=== PATIENT | female | born 2000 | race Caucasian/White ===

== ENCOUNTER 2024-06-10 21:20 | Inpatient (IN) | payer OTHER ==
[~2024-06-10] VITALS: Ht 154.9 cm; Wt 66.8 kg
[2024-06-10] MEDS ORDERED: HYDROmorphone 0.5 MG/0.5 ML SYRINGE IV PRN (22:45)
[2024-06-10] MEDS ORDERED: NS 1,000 ML IV SCH (22:45)
[2024-06-10] MEDS ORDERED: Naloxone 0.4 MG/ML VIAL IV PRN (22:45)
[2024-06-10] MEDS ORDERED: Ondansetron 4 MG/2 ML VIAL IV PRN (22:45)
[2024-06-10] MEDS ORDERED: Ketorolac 15 MG/ML VIAL IV SCH (22:45)
[2024-06-10 23:37] VITALS: BP 120/67; PULSE 104; TEMP 98.3
--- NOTE | 2024-06-10 23:39 | NUR ---
PATIENT ADMITTED TO ROOM 342 BROUGHT BY [facility]. DURING TRANSPORT PATIENT RECIEVED TOTAL 100 MG FENTANYL TO ADDRESS 10/10 ABDOMINAL PAIN. VS ARE: 120/67BP, PUSE 104, TEMP 98.3 AND 02 SAT 98 ON RA, RR 16. PATINET IS AXO X4 WITH RT AC IV . KIDNEY ORDER SET INITIATED PATIENT ORIENTED TO ROOM. MED REC IN PROGRESS.
[2024-06-11] VITALS (20 sets, daily range): BP systolic 103–127; BP diastolic 59–79; PULSE 61–135; TEMP 97.8–102.1
[2024-06-11] MEDS ORDERED: ZOFRAN8 MG PO (00:10)
[2024-06-11] MEDS ORDERED: PERCOCET 325 MG1 TA2 PO (00:11)
[2024-06-11] MEDS ORDERED: MOTRIN 800800 MG/TAB PO (00:12)
[2024-06-11] MEDS ORDERED: TYLENOL 325MG325 MG PO (00:13)
[2024-06-11] MEDS ORDERED: COLACE 100100 MG/CAP PO (00:15)
[2024-06-11] MEDS ORDERED: ZYRTEC 10MG10 MG PO (00:15)
--- NOTE | 2024-06-11 01:43 | NUR ---
PATIENT C/O 8/10 ABDOMINAL PAIN. 0.5MG IV DILAUDID ADMINISTERED. THIS NURSE STAYED WITH PATIENT FOR 10 MINUTES FOLLOWING PATIENT HAS NEVER HAD IV DILAUDID. VITAL SIGNS RECHECKED-110/70 BP, 109 PULSE, 16RR AND 97% ON RA. PATIENT RESTING AND AWAKENS EASILY TO ANSWER ADMISSION QUESTIONS FROM CREATIVE SERVICES DIRECTOR.
--- NOTE | 2024-06-11 03:45 | NUR ---
PATIENT SHIVERING AND C/O 8/10 ABDOMINAL PAIN. TORADOL ADMINISTERED AND WARM BLANKET APPLIED. PATIENT NOW RESTING WITH EYES CLOSED AND SHIVERING HAS CEASED.
--- NOTE | 2024-06-11 06:17 | NUR ---
PATIENT UP TO BATHROOM. URINATED 300MLS VIANCA CLOUDY URINE. RATES RT FLANK PAIN 05/13. IV DILAUDID 05MG GIVEN.
--- NOTE | 2024-06-11 07:47 | NUR ---
LEFT MESSAGE WITH DR. HARDEN UPDATING ON PT CONDITION AND ASKING FOR TYLENOL ORDER.
[2024-06-11] MEDS ORDERED: Ondansetron 4 MG/2 ML VIAL ONE (08:34)
[2024-06-11] MEDS ORDERED: dexAMETHasone 10 MG/ML VIAL ONE (08:34)
[2024-06-11] MEDS ORDERED: Lidocaine PF 2% (20 MG/ML) 5 ML VIAL ONE (08:34)
[2024-06-11] MEDS ORDERED: Ketorolac 30 MG/ML VIAL ONE (08:34)
[2024-06-11] MEDS ORDERED: NS 10 ML IV ONE (08:34)
[2024-06-11] MEDS ORDERED: fentaNYL 50 MCG/ML 2 ML VIAL ONE (08:35)
[2024-06-11] MEDS ORDERED: oxyCODONE 5 MG TAB PO PRN (08:45)
[2024-06-11] MEDS ORDERED: Naloxone 0.4 MG/ML VIAL IV PRN (08:45)
[2024-06-11] MEDS ORDERED: Morphine 4 MG/ML VIAL IV PRN (08:45)
[2024-06-11] MEDS ORDERED: Hyoscyamine 0.125 MG Sublingual TAB SL PRN (08:45)
[2024-06-11] MEDS ORDERED: Ondansetron 4 MG/2 ML VIAL IV PRN ×2 (08:45→09:00)
[2024-06-11] MEDS ORDERED: Acetaminophen 325 MG TAB PO PRN (08:45)
[2024-06-11] MEDS ORDERED: Lidocaine 2% (20 MG/ML) 20 ML UROJET UR ONE (08:49)
[2024-06-11] MEDS ORDERED: Iohexol 350 - 100 ML VIAL URETER-R ONE (08:49)
[2024-06-11] MEDS ORDERED: Morphine 2 MG/1 ML VIAL [PACU/SDC ONLY] IV PRN (09:00)
[2024-06-11] MEDS ORDERED: cefTRIAXone 1 G in Water For Injection,Sterile 10 ML IV SCH (09:00)
[2024-06-11] MEDS ORDERED: HYDROmorphone 1 MG/1 ML SYRINGE [PACU/SDC ONLY] IV PRN (09:00)
[2024-06-11] MEDS ORDERED: droPERidol 2.5 MG/ML 2 ML VIAL IV PRN (09:00)
[2024-06-11] MEDS ORDERED: fentaNYL 50 MCG/ML 1 ML SYRINGE/VIAL [PACU/SDC ONLY] IV PRN (09:00)
[2024-06-11] MEDS ORDERED: Meperidine 50 MG/ML 1 ML VIAL IV PRN (09:00)
--- NOTE | 2024-06-11 09:03 | NUR ---
PT TO SURGERY WITH JUD @ [address] HARDEN UPDATED ON PT CONDITION.
[2024-06-11] MEDS ORDERED: Acetaminophen 500 MG TAB PO SCH (09:44)
--- NOTE | 2024-06-11 10:03 | NUR ---
PT TO ROOM 342 PER BED WITH ILIA HELLER PACU @0945, PT IS A/O X4. RATING PAIN @4/10, DROWSEY BUT AROUSES. IV PER GRAVITY. VSS. PT SLIGHTLY TACHY @110-120. A-FEBRILE. LUNGS CTA, BOWEL SOUNDS PRESENT.
--- NOTE | 2024-06-11 14:19 | NUR ---
log raft worker met with patient at bedside to discuss discharge planning. Patient stated that she lives on [address] with her boyfriend, Lobo (p# [phone]) - patient also designated Lobo as her primary contact. Patient states that her PCP is Dr. Beck and that she uses the [facility] pharmacy on [address]. Patient denies using any DME, needing any assistance with ADLs, or needing any assistance driving to or from appointments. Patient also denied having a DPOA, and stated that she was not interested in designating one at this time. Post-discharge, patient plans to return home. Plan: D/C Home.
--- NOTE | 2024-06-11 19:33 | NUR ---
pt is a&ox4 resting in bed. pt rates pain a 6/10 in her right flank, pain medication given. denies nausea. no needs at this time. call light in reach.
[2024-06-12] VITALS (13 sets, daily range): BP systolic 110–129; BP diastolic 69–88; PULSE 63–97; TEMP 97.8–99.3
--- NOTE | 2024-06-12 10:00 | NUR ---
Pt. sitting up in bed. Pt. is A&OX3, assessment complete. INT to rt. ac patent.
[2024-06-12 10:25] LABS: HEMOGLOBIN 10.4 g/dl (12.5-16.0); MEAN CELL VOLUME 90 fl (80.0-100.0); MEAN CORPUSCULAR HEMOGLOBIN 31 pg (27-31); MEAN CORPUSCULAR HGB CONC 34 g/dl (33.0-37.0); MEAN PLATELET VOLUME 10.6 fl (7.4-10.4); PLATELET COUNT 177 K/mm3 (130-400); RED BLOOD COUNT 3.39 M/mm3 (4.10-5.30); REDCELL DISTRIBUTION WIDTH-CV 12.8 % (11.5-14.5)
[2024-06-12 10:28] LABS: HEMATOCRIT 30.5 % (37.0-47.0)
[2024-06-12 10:37] LABS: CALCIUM 8.1 mg/dL (8.4-10.2); CREATININE, serum 1.4 mg/dL (0.57-1.11); POTASSIUM 3.9 mEq/L (3.5-4.5)
--- NOTE | 2024-06-12 10:40 | NUR ---
Pt. reports chest pain to the nurse. Dr. Poole notified. New order to Consult Hospitalist. TEOFILO Chiang notified. EKG notified of new order also.
[2024-06-12 11:38] LABS: BAND 11 % (0-10); LYMPHOCYTE 9 % (20.0-51.0); NEUTROPHILS 75 % (42.0-75.2); PLATELET ESTIMATE NORMAL (NORMAL)
[2024-06-12] MEDS ORDERED: Cetirizine 10 MG TAB PO SCH (12:46)
--- NOTE | 2024-06-12 12:54 | NUR ---
Initial visit; Patient very pleasant and was receptive to being added to Offset Printer's prayer list. Offset Printer wished her well and God's blessings.
[2024-06-12] MEDS ORDERED: cefTRIAXone 1 G in Water For Injection,Sterile 10 ML IV SCH (14:45)
--- NOTE | 2024-06-12 22:20 | NUR ---
Patient assessed at this time, see shift assessment, A/Ox4, reports pain to her right flank, PS 8-9/10, medicated with oxycodone at this time, IV infusing well on right AC, denies further needs, call light and personal items within reach, will continue to monitor.
[2024-06-13] VITALS (15 sets, daily range): BP systolic 110–142; BP diastolic 7–88; PULSE 86–108; TEMP 98.2–103
[2024-06-13 04:30] LABS: BASO # 0.1 K/mm3 (0.0-0.2); BASO % 0.4 % (0.0-2.0); EOS # 0.1 K/mm3 (0.0-0.7); EOS % 0.6 % (0.0-4.0); GRAN # 11.3 K/mm3 (1.4-6.5); GRAN % 83.7 % (42.2-75.2); HEMOGLOBIN 10.2 g/dl (12.5-16.0); LYMPH # 1.3 K/mm3 (1.2-3.4); LYMPH % 9.6 % (20.0-51.0); MEAN CELL VOLUME 87 fl (80.0-100.0); MEAN CORPUSCULAR HEMOGLOBIN 31 pg (27-31); MEAN CORPUSCULAR HGB CONC 35 g/dl (33.0-37.0); MEAN PLATELET VOLUME 9.9 fl (7.4-10.4); MONO # 0.7 K/mm3 (0.1-0.6); PLATELET COUNT 202 K/mm3 (130-400); RED BLOOD COUNT 3.34 M/mm3 (4.10-5.30); REDCELL DISTRIBUTION WIDTH-CV 12.5 % (11.5-14.5)
[2024-06-13 04:55] LABS: CALCIUM 8.2 mg/dL (8.4-10.2); CREATININE, serum 1.34 mg/dL (0.57-1.11); POTASSIUM 3.5 mEq/L (3.5-4.5)
--- NOTE | 2024-06-13 08:00 | NUR ---
Patient laying in bed, resting in bed. A&Ox4. VSS. IV CDI. Denies pain and discomfort. Call light within reach
--- NOTE | 2024-06-13 08:30 | NUR ---
Went in with pt as primary nurse had to step away and had medications to be given. Went over medications with pt. Pt initially stated that she did not take zyrtec but that she takes certirizine. Informed her that the medications are the same, just generic vs trade names. Pt said ok. Medications given and then asked if pt needed anything else, nothing at this time.
[2024-06-13] MEDS ORDERED: Docusate Sodium 100 MG CAP PO SCH (09:00)
[2024-06-13] MEDS ORDERED: Polyethylene Glycol 3350 17 GM PDS PO SCH (09:00)
[2024-06-13] MEDS ORDERED: cefTRIAXone 1 G in Water For Injection,Sterile 10 ML IV SCH (09:00)
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
--- NOTE | 2024-06-13 16:00 | NUR ---
Patient complaint of right side abdominal pain, doubled over when ambulating and moaning. Pain medication requested. Dr Rowland notified and awaiting additional orders. Patient assisted to the recliner. Call light within reach
[2024-06-13] MEDS ORDERED: Iohexol 300 - 100 ML VIAL IV ONE (17:12)
[2024-06-13] MEDS ORDERED: NS 100 ML IV SCH (17:13)
[2024-06-13] MEDS ORDERED: LR 1,000 ML IV SCH (17:15)
--- NOTE | 2024-06-13 18:11 | NUR ---
Patient laying in the recliner for comfort. Kpad on abdomen. Pain medication given when requested. IV fluids infusing. Call light within reach
--- NOTE | 2024-06-13 19:06 | NUR ---
Attempted to call the patients boyfriend per the patients request. The boyfriend did not answer and a voicemail is not set up to leave a message
--- NOTE | 2024-06-13 20:07 | NUR ---
Patient assessed at this time, sitting up in a chair, reports pain to right flank, PS 9/10, will medicate with oxycodone, IV infusing well on right antecubital, LR at 150cc/hr, temp at 1900 was at 103, medicated with tylenol, denies nausea or vomiting, Dr. Poole rounded an hour ago and spoke the patient, encouraged patient to walk and use IS, not agreeable to walk at this time, plan of care discussed, will continue to monitor.
--- NOTE | 2024-06-13 20:30 | NUR ---
Patient resting in a chair, eyes closed, looks comfortable.
--- NOTE | 2024-06-13 23:41 | NUR ---
Patient's MEW score of 4 as of 1999 vitals, provider was aware of the temp of 103, charge nurse informed regarding this as well, will closely monitor.
[2024-06-14] VITALS (16 sets, daily range): BP systolic 117–138; BP diastolic 69–90; PULSE 77–88; TEMP 98.4–102.5
--- NOTE | 2024-06-14 03:00 | NUR ---
Patient not agreeable to ambulate at this time, she stated she feel sleepy.
--- NOTE | 2024-06-14 05:17 | NUR ---
Patient resting in bed, eyes closed, looks comfortable, respirations even and unlabored.
--- NOTE | 2024-06-14 06:27 | NUR ---
Patient ambulated the halls at this time.
--- NOTE | 2024-06-14 08:13 | NUR ---
Patient resting in bed. Sleepy. Reports pain 9/10. Denies wanting pain medication at this time. We did review levsin as an option and she was willing nto try. She is more concerned about her nausea. Zofran, prn as ordered. IV antibioitcs as ordered to RAC. She has minimal interest in PO intake, but was given her miralax with juice. SHe reports passing flatus. Encouraged a shower today when she feels up to it. Denies other needs at this time
[2024-06-14] MEDS ORDERED: Magnesium Citrate Oral Soln 300 ML BOTTLE PO ONE (09:15)
--- NOTE | 2024-06-14 09:27 | NUR ---
called, plan of care reviewed. Order received & Dulcolax as ordered, patient agreeable. She is lying on her side, advised her to lay for 30 minutes.
--- NOTE | 2024-06-14 10:49 | NUR ---
Patient up in the bathroom. Having positive BM. Reports large. Patient also up and showered. Denies needs.
--- NOTE | 2024-06-14 11:23 | NUR ---
Patient resting in bed. Pain elevated after being in the bathroom. Rating 100/10. Reports pain as sharp and stabbing. Prn morphine as ordered. Warm blanket provided. Denies other needs at this time
[2024-06-14] MEDS ORDERED: Pantoprazole 40 MG in NS 10 ML IV SCH (13:17)
--- NOTE | 2024-06-14 13:53 | NUR ---
Data: Patient declined spiritual care visit offered during Shovel Loader Operator rounds. Assessment: None at this time. Plan of Care: Chaplains will remain available as needed/requested while Patient is admitted to this hospital.
--- NOTE | 2024-06-14 13:55 | NUR ---
Patient having chills and fever. made aware & orders obtained. Patient also having small amount of bile emesis. Zofran as ordered. Tyelnol given as scheduled for fever. Attempted to remove all blankets, patient not willing to let blankets go. Did turn air down in room. Lab made aware of orders.
[2024-06-14 14:25] LABS: HEMOGLOBIN 10.3 g/dl (12.5-16.0); MEAN CELL VOLUME 88 fl (80.0-100.0); MEAN CORPUSCULAR HEMOGLOBIN 30 pg (27-31); MEAN CORPUSCULAR HGB CONC 35 g/dl (33.0-37.0); MEAN PLATELET VOLUME 9.6 fl (7.4-10.4); PLATELET COUNT 238 K/mm3 (130-400); REDCELL DISTRIBUTION WIDTH-CV 12.7 % (11.5-14.5)
[2024-06-14 14:29] LABS: HEMATOCRIT 29.8 % (37.0-47.0)
[2024-06-14 14:42] LABS: CALCIUM 8.8 mg/dL (8.4-10.2); CREATININE, serum 1.17 mg/dL (0.57-1.11); POTASSIUM 3.5 mEq/L (3.5-4.5)
[2024-06-14] MEDS ORDERED: Ketorolac 15 MG/ML VIAL IV ONE (15:30)
--- NOTE | 2024-06-14 15:37 | NUR ---
rounded. Plan of care reviewed. Status update given. Toradol as ordered. Encouraged activity, not willing to ambulate halls at this time. Her significant other at bedside with children. Fresh ice water and ice chips provided. Temp. improved. Blankets remains off. Denies other needs at this time
[2024-06-14 16:22] LABS: BAND 7 % (0-10); LYMPHOCYTE 26 % (20.0-51.0); METAMYELOCYTE 1 % (0-0); NEUTROPHILS 60 % (42.0-75.2); NUCLEATED RED BLOOD CELL 2 (0-6)
[2024-06-14 16:26] LABS: PLATELET ESTIMATE NORMAL (NORMAL)
--- NOTE | 2024-06-14 18:12 | NUR ---
Patient resting in bed. Ambulated halls with family and did well. Over all she reports her pain better controlled at this time, but nausea remains. She did order dinner, hoping food will settle. IVF as ordered. Ice water at bedside. Will report off to nightnurse
--- NOTE | 2024-06-14 20:05 | NUR ---
Patient assessed at this time, see shift assessment, reports nausea is better and pain is minimal, didn't rate the pain, reports she's still having loose stool, will monitor, IV infusing well on right AC, KPAD on to lower legs per request, passing gas, denies further needs, call light and personal items within reach, will continue to monitor.
--- NOTE | 2024-06-14 23:10 | NUR ---
Patient nauseous at this time, called Jessenia, the SHOE RECONDITIONER and made her aware, received an order for compazine, given see emar for details.
[2024-06-15] VITALS (13 sets, daily range): BP systolic 128–146; BP diastolic 76–90; PULSE 75–103; TEMP 98.8–100.7
--- NOTE | 2024-06-15 00:48 | NUR ---
Patient got up the bathroom, reports pain at 8/10, medicated with morphine.
[2024-06-15 05:22] LABS: MEAN CELL VOLUME 88 fl (80.0-100.0); MEAN CORPUSCULAR HGB CONC 34 g/dl (33.0-37.0); MEAN PLATELET VOLUME 9.3 fl (7.4-10.4); PLATELET COUNT 237 K/mm3 (130-400); RED BLOOD COUNT 3.17 M/mm3 (4.10-5.30); REDCELL DISTRIBUTION WIDTH-CV 12.7 % (11.5-14.5)
[2024-06-15 05:34] LABS: HEMATOCRIT 27.8 % (37.0-47.0); HEMOGLOBIN 9.5 g/dl (12.5-16.0); MEAN CORPUSCULAR HEMOGLOBIN 30 pg (27-31)
[2024-06-15 05:44] LABS: CALCIUM 8.2 mg/dL (8.4-10.2); CREATININE, serum 1.14 mg/dL (0.57-1.11); POTASSIUM 3.3 mEq/L (3.5-4.5)
--- NOTE | 2024-06-15 05:45 | NUR ---
Patient's blood sugar is 70mg/dl, offered snack and she drink cranberry juice, will recheck blood sugar later.
[2024-06-15 06:33] LABS: BAND 4 % (0-10); LYMPHOCYTE 23 % (20.0-51.0); METAMYELOCYTE 1 % (0-0); NEUTROPHILS 63 % (42.0-75.2); PLATELET ESTIMATE NORMAL (NORMAL)
--- NOTE | 2024-06-15 06:53 | NUR ---
Patient had bile emesis, reports pain at 8/10, medicated with compazine and morphine, will continue to monitor.
--- NOTE | 2024-06-15 08:11 | NUR ---
PT RESTING IN BED, ALERT AND ORIENTEDX4. ASSESSED PT RATES PAIN 2/10 AFTER GETTING MORPHINE AT SHIFT CHANGE. PT WAS ALSO NAUSEOUS AND VOMITTING AT SHIFT CHANGE. PT NOT FEELING NAUSEOUS. PT HAS SLIGHTLY ELEVATED TEMP. GAVE SCHEDULED TYLENOL. PT ALSO USING KPAD FOR FLANK PAIN. PT HAS ZOSYN RUNNIG PT REFUSED STOOL SOFTNER AND MIRALX DUE TO LOOSE STOOLS. GAVE PROTONIX. NO OTHER COMPLAINTS AT THIS TIME. CALL LIGHT WITHIN REACH.
[2024-06-15] MEDS ORDERED: D5LR 1,000 ML IV SCH (10:45)
[2024-06-15 17:53] LABS: CLOSTRIDIUM DIFF A/B NEG
--- NOTE | 2024-06-15 21:29 | NUR ---
PATIENT ALERT AND ORIENTED X4. VSS. PATIENT HERE FOR KIDNEY STONE. PATIENT REPORTS PAIN 8/10, REQUESTS PRN PAIN MEDICATION. PM MEDS ADMINISTERED. NO FURTHER NEEDS. CALL LIGHT IN REACH.
[2024-06-16] VITALS (20 sets, daily range): BP systolic 107–144; BP diastolic 56–91; PULSE 56–111; TEMP 97.3–103.2
--- NOTE | 2024-06-16 00:16 | NUR ---
VS REVEALED PATIENT TO BE WITH A TEMP OF 103. PO TYLENOL ADMINISTERED. PATIENT HAD 4 BLANKETS ON, ALL PUT ONE WERE REMOVED. COLD COMPRESS TO FOREHEAD. IRENE NOTIFIED OF PATIENT'S STATUS AND WHAT INTERVENTIONS WERE MADE.
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
[2024-06-16 07:04] LABS: HEMOGLOBIN 10.1 g/dl (12.5-16.0); MEAN CELL VOLUME 88 fl (80.0-100.0); MEAN CORPUSCULAR HEMOGLOBIN 30 pg (27-31); MEAN CORPUSCULAR HGB CONC 34 g/dl (33.0-37.0); RED BLOOD COUNT 3.39 M/mm3 (4.10-5.30); REDCELL DISTRIBUTION WIDTH-CV 12.7 % (11.5-14.5)
[2024-06-16 07:20] LABS: HEMATOCRIT 29.7 % (37.0-47.0); MEAN PLATELET VOLUME 9.6 fl (7.4-10.4); PLATELET COUNT 346 K/mm3 (130-400)
[2024-06-16 07:22] LABS: CALCIUM 8.8 mg/dL (8.4-10.2); CREATININE, serum 1.23 mg/dL (0.57-1.11); POTASSIUM 3.9 mEq/L (3.5-4.5)
[2024-06-16 07:53] LABS: BAND 9 % (0-10); EOSINOPHIL 2 % (0-4); HYPOCHROMIA 1+; LYMPHOCYTE 27 % (20.0-51.0); NEUTROPHILS 58 % (42.0-75.2); PLATELET ESTIMATE NORMAL (NORMAL)
--- NOTE | 2024-06-16 08:00 | NUR ---
PATIENT IS A&O. NOTED ELEVATED HR IN 100'S. COMMUNITY ARTS CENTRE MANAGER REPORTED FEVERS OFF AND ON THROUGH THE NIGHT UP TO 103.2, TEMP IS CURRENTLY 99.3. ALL OTHER VSS. PATIENT ON SCHEDULED TYLENOL. CLEAR LIQUID DIET FOR BREAKFAST THEN, NPO FOR SURGERY LATE TODAY. IV FLUIDS AND ABX INFUSING VIA PUMP INTO RIGHT AC IV. HEAD TO TOE ASSESSMENT COMPLETE. NO OTHER NEEDS AT THIS TIME. CALL LIGHT IN REACH.
[2024-06-16] MEDS ORDERED: Ketorolac 30 MG/ML VIAL ONE (09:46)
[2024-06-16] MEDS ORDERED: fentaNYL 50 MCG/ML 2 ML VIAL ONE (09:46)
[2024-06-16] MEDS ORDERED: Ondansetron 4 MG/2 ML VIAL ONE ×2 (09:46→16:55)
[2024-06-16] MEDS ORDERED: dexAMETHasone 10 MG/ML VIAL ONE (09:46)
[2024-06-16] MEDS ORDERED: NS 10 ML IV ONE (09:46)
[2024-06-16] MEDS ORDERED: Lidocaine PF 2% (20 MG/ML) 5 ML VIAL ONE ×2 (09:46→16:55)
--- NOTE | 2024-06-16 16:45 | NUR ---
PATIENT GOING DOWN TO OR VIA BED. NPO. FLUIDS INFUSING VIA GRAVITY. CONSENT & TICKET TO RIDE ON CHART. PATIENT NOW OFF FLOOR.
[2024-06-16] MEDS ORDERED: Midazolam 2 MG/2 ML VIAL ONE (16:55)
[2024-06-16] MEDS ORDERED: HYDROmorphone 1 MG/1 ML SYRINGE [PACU/SDC ONLY] IV PRN (17:15)
[2024-06-16] MEDS ORDERED: hydrALAZINE 20 MG/ML 1 ML VIAL IV PRN (17:15)
[2024-06-16] MEDS ORDERED: Meperidine 50 MG/ML 1 ML VIAL IV PRN (17:15)
[2024-06-16] MEDS ORDERED: fentaNYL 50 MCG/ML 1 ML SYRINGE/VIAL [PACU/SDC ONLY] IV PRN (17:15)
[2024-06-16] MEDS ORDERED: droPERidol 2.5 MG/ML 2 ML VIAL IV PRN (17:15)
[2024-06-16] MEDS ORDERED: Ondansetron 4 MG/2 ML VIAL IV PRN (17:15)
[2024-06-16] MEDS ORDERED: Lidocaine 2% (20 MG/ML) 20 ML UROJET UR ONE (17:21)
--- NOTE | 2024-06-16 17:55 | NUR ---
PATIENT BACK IN ROOM 342 POSTOP. A&O AND REPORTING SHE FEELS MUCH BETTER. VSS. NO C/O PAIN OR NAUSEA. PATIENT ASSISTED TO BATHROOM AND WAS ABLE TO VOID. PATIENT SAYING SHE IS ACTUALLY HUNDRY FOR THE FIRST TIME IN SEVERAL DAYS. BOYFRIEND WENT TO GO GET HER FOOD.
--- NOTE | 2024-06-16 21:57 | NUR ---
Patient assessed around 2044. Alert and oriented, and able to make needs known. Denies having pain and discomfort. Peripheral IV to right AC. Recieved IV ABX per orders. Continues on fluid per orders. Denies SOB and dyspnea. LS CTA. HRR. BSAx4. No edema. Patient has been able to eat and drink without nausea. Has been able to urinate. Afebrile so far this shift. Voices no questions, needs, or concerns at this time. In bed with call light within reach.
[2024-06-17 03:06] VITALS: BP 126/80; PULSE 58; TEMP 97.7
[2024-06-17 03:57] VITALS: BP_SYST 126
--- NOTE | 2024-06-17 06:05 | NUR ---
Patient has been afebrile this shift. Has denied needing any medication for pain, discomfort, or nausea throughout this shift. Continues on IV fluids and ABX per orders. Voices no questions, needs, or concerns at this time. In bed with call light within reach.
[2024-06-17 06:25] LABS: CALCIUM 8.8 mg/dL (8.4-10.2); CREATININE, serum 1.08 mg/dL (0.57-1.11); POTASSIUM 3.8 mEq/L (3.5-4.5)
[2024-06-17 06:27] LABS: HEMOGLOBIN 10.2 g/dl (12.5-16.0); MEAN CELL VOLUME 86 fl (80.0-100.0); MEAN CORPUSCULAR HEMOGLOBIN 30 pg (27-31); MEAN CORPUSCULAR HGB CONC 35 g/dl (33.0-37.0); MEAN PLATELET VOLUME 9.3 fl (7.4-10.4); PLATELET COUNT 395 K/mm3 (130-400); RED BLOOD COUNT 3.41 M/mm3 (4.10-5.30); REDCELL DISTRIBUTION WIDTH-CV 12.7 % (11.5-14.5)
[2024-06-17 06:29] LABS: HEMATOCRIT 29.3 % (37.0-47.0)
[2024-06-17 07:11] LABS: BAND 11 % (0-10); LYMPHOCYTE 13 % (20.0-51.0); NEUTROPHILS 72 % (42.0-75.2); PLATELET ESTIMATE NORMAL (NORMAL)
[2024-06-17 07:12] VITALS: BP 134/89; PULSE 54; TEMP 97.4
[2024-06-17 07:12] LABS: HYPOCHROMIA 1+
[2024-06-17 08:00] VITALS: BP_SYST 134
--- NOTE | 2024-06-17 08:00 | NUR ---
PATIENT IS A&O AND REPORTS SHE FEELS LIKE A NEW PERSON. AFEBRILE & VSS. NO C/O PAIN OR NAUSEA. TOLERATING GENERAL DIET. PATIENT SHOWERED AND DRESSED. IV ABX INFUSING VIA PUMP INTO RIGHT AC IV. HEAD TO TOE ASSESSMENT WNL. NO OTHER NEEDS AT THIS TIME. CALL LIGHT IN REACH.
--- NOTE | 2024-06-17 10:25 | NUR ---
SW met with patient to review discharge plan. Patient sitting up in bed, denies pain or needs at this time. Patient states that her boyfriend will pick her up when discharged and return home with family. Discharge plan: Home
--- NOTE | 2024-06-17 10:33 | NUR ---
Follow-up visit: Fabienne has had a previous visit and let Luster Applicator know following their visit. She was just sitting on her bed reading her phone messages. Luster Applicator asked how she was doing. She said she wad doing ok and thanked Luster Applicator for stopping.
[2024-06-17 11:18] VITALS: BP 131/82; PULSE 65; TEMP 98.2
--- NOTE | 2024-06-17 11:35 | NUR ---
MESSAGED PROVIDER WITH PATIENT STATUS UPDATE. PATIENT HOPING TO DISCHARGE HOME TODAY. AWAITING RETURN CALL.
--- NOTE | 2024-06-17 15:00 | NUR ---
PATIENT DISCHARGING HOME VIA AMBULATORY TO PERSONAL VEHICLE WITH . GAVE DISCHARGE INSTRUCTIONS, WORK RELEASE, AND DISCUSSED F/U APT. ANSWERED QUESTIONS/CONCERNS. DC'D RIGHT AC IV AND COVERED SITE WITH [employer]. PATIENT IS DRESSED, PACKED AND DISCHARGED TO HOME.
== END 2024-06-17 15:00 | disposition home or self-care (01) | DRG 854 ==
LOC: SURG 21:20
PROVIDERS: Internal Medicine; Physician Assistant; ADMIT Urology
PROC: 0T738DZ Dilation of Right Kidney Pelvis with Intraluminal Device, Via Natural or Artificial Opening Endoscopic (ICD-10-PCS; principal; 2024-06-11 08:00)
PROC: BT1D1ZZ Fluoroscopy of Right Kidney, Ureter and Bladder using Low Osmolar Contrast (ICD-10-PCS; 2024-06-11 08:00)
PROC: 0TF68ZZ Fragmentation in Right Ureter, Via Natural or Artificial Opening Endoscopic (ICD-10-PCS; 2024-06-16)
PROC: 0TP Urinary System, Removal (ICD-10-PCS; 2024-06-16 16:30)
DX: A41.51 Sepsis due to Escherichia coli [E. coli] (principal); N10 Acute pyelonephritis; N17.9 Acute kidney failure, unspecified; N20.1 Calculus of ureter; N39.0 Urinary tract infection, site not specified; R19.7 Diarrhea, unspecified; Z79.899 Other long term (current) drug therapy
CPT/HCPCS: A9284; C1769; C2617; G0378; G0379; J0690; J0696; J0780; J1100; J1171; J1885; J2250; J2270; J2405; J2470; J2543; J2704; J3010; J7030; J7120; J7121; Q9967